=== PATIENT | male | born 1970 | race Caucasian/White ===

== ENCOUNTER 2017-01-12 12:53 | Emergency (ER) | payer SELFPAY | END 2017-01-12 15:30 | disposition home or self-care (01) | LOC: ER 12:53 | DX: M54.5 Low back pain (principal); F17.200 Nicotine dependence, unspecified, uncomplicated; W01.0XXA Fall on same level from slipping, tripping and stumbling without subsequent striking against object, initial encounter; Z88.0 Allergy status to penicillin | CPT/HCPCS: 72100; 96372; 99283; J1885; J2360 ==